=== PATIENT | female | born 1940 | race Caucasian/White ===

== ENCOUNTER 2016-12-03 17:29 | Emergency (ER) | payer OTHER ==
--- NOTE | 2016-12-03 17:43 | EDPHY ---
H & P Time Seen by Provider: 12/03/16 17:34 HPI/ROS: Chief complaint. Shortness of breath, chest heaviness HPI. 76-year-old female with COPD presents with chest tightness in her central chest for 1 day. No radiation. She short of breath initially this week with exertion now at rest. She has been using her albuterol inhaler some though not on a regular basis. 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 Again now somewhat short of breath at rest. URI symptoms 4 days ago. Nonproductive some cough. Rattle E breath last 3 nights when lying down. Fever to 100 degrees. ROS Constitutional. Fever Eyes. no problems with vision ENT. no sore throat, no nasal drainage Cardiovascular. Central chest tightness Respiratory. Shortness of breath some cough Abdominal. no abdominal pain, no nausea/vomiting, no diarrhea . no problems urinating MS. no calf pain/swelling, no neck/back pain, no joint pain Skin. no rash Lymph. no swollen glands Neuro. no headache, no dizziness, no difficulty walking or with speech Past Medical/Surgical History: Past medical history COPD GI hypertrophic cardiomyopathy, diabetes, hypertension , dyslipidemia, kidney stone, hyperparathyroidism, DVT/PE on Coumadin. 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 Initial O2 saturation 89% on room air Eyes: Pupils equal and round no pallor or injection. ENT, Mouth: Mucous membranes are moist. No stridor. Patient speaks in full sentences Respiratory: No retractions. Mild inspiratory expiratory rhonchi. Cardiovascular: Regular rate and rhythm. Gastrointestinal: Abdomen is soft and nontender, no masses, bowel sounds normal. Neurological: Awake and alert, sensory and motor exams grossly normal. Skin: Warm and dry, no rashes. Musculoskeletal: Neck is supple nontender. Extremities symmetrical, full range of motion. Psychiatric: Patient is oriented X 3, there is no agitation. Constitutional: Initial Vital Signs O2 Sat (%) 93 12/03/16 17:45 O2 Delivery Mode Nasal Cannula O2 (L/minute) 2 Allergies/Adverse Reactions: codeine [Codeine] Allergy (Severe, Verified 02/04/12 13:57) Other-Enter Comments Sulfa (Sulfonamide Antibiotics) Allergy (Severe, Verified 02/04/12 13:57) Unknown propoxyphene HCl [From Darvon] Allergy (Unknown, Verified 02/04/12 13:57) Seasonal Allergies Allergy (Severe, Uncoded 02/04/12 13:57) Congestion Home Medications: Medication Instructions Recorded Hydrochlorothiazide [HCTZ (*)] 12.5 mg PO DAILY 02/04/12 Multivitamins [Multivitamin (*)] 1 each PO DAILY 02/04/12 PARoxetine HCL [Paxil 10mg (*)] 10 mg PO DAILY 02/04/12 Valsartan [Diovan (*)] 160 mg PO BID 02/04/12 Warfarin Sodium [Coumadin 5MG (*)] 5 mg PO SUTUWETHFRSA@16 02/04/12 Cholecalciferol Vit D3 [Vitamin D3 2,000 units PO HS 12/10/15 2000 units] Metformin HCl [Metformin 1000 mg] 1,000 mg PO BIDMEAL 12/10/15 Metoprolol Succinate Xr [Toprol Xl 50 mg PO DAILY 12/10/15 50 mg (*)] Herbals/Supplements -Info Only 1 ea PO DAILY 09/05/16 Iron Polysacch/Iron Heme Polyp 28 mg PO DAILY 09/05/16 [Bifera] Warfarin Sodium [Coumadin 5MG (*)] 7.5 mg PO MO@16 09/05/16 Ipratropium/Albuterol [Duoneb (*)] 3 ml IH QID #60 deyvial 09/08/16 Advair 250/50 (*) 12/03/16 Azithromycin [Zithromax] 250 mg PO DAILY #6 tab 12/03/16 Calcium Citrate 12/03/16 Mucinex 12/03/16 predniSONE 40 mg PO DAILY #10 tab 12/03/16 Medical Decision Making - Diagnostics EKG Interpretation: EKG interpreted by me shows normal sinus rhythm with normal interval and left axis deviation. QRS shows a right bundle branch block. No significant ST elevation or depression. The rate is 64. No change in the EKG from previous EKG 08/2016 Imaging: CT angiogram chest interpreted by me and then discussed with Dr. Rocha shows no evidence of pulmonary embolus Procedures: IV normal saline. DuoNeb updraft ED Course/Re-evaluation: Re-evaluation 7:55 p.m.--patient is stable and feeling much better. No chest discomfort. She is breathing well. She a has a pulse oximeter of between 90 and 93% on room air. She speaks in full sentences. The patient, her daughter, and I discussed treatment plan including criteria for return importance of follow-up and further evaluation. She expresses understanding and agreement Patient is given prednisone 60 mg by mouth Differential Diagnosis: Likely this is COPD exacerbation. I considered pneumonia and pneumothorax as well as pulmonary embolus. I also considered acute coronary syndrome - Data Points Laboratory Results: Laboratory Results 12/03/16 17:50 12/03/16 17:50 12/03/16 12/03/16 12/03/16 17:50 17:50 17:50 WBC RBC Hgb Hct MCV MCH MCHC RDW Plt Count MPV Neut % (Auto) Lymph % (Auto) [place] % (Auto) Eos % (Auto) Baso % (Auto) Nucleat RBC Rel Count Absolute Neuts (auto) Absolute Lymphs (auto) Absolute Monos (auto) Absolute Eos (auto) Absolute Basos (auto) Absolute Nucleated RBC Immature Gran % Immature Gran # PT 21.7 SEC H SEC (12.0-15.0) INR 1.88 H (0.83-1.16) D-Dimer 0.66 ug/mLFEU H ug/mLFEU (0.00-0.50) Sodium 139 mEq/L mEq/L (134-144) Potassium 4.3 mEq/L mEq/L (3.5-5.2) Chloride 102 mEq/L mEq/L (97-110) Carbon Dioxide 25 mEq/l mEq/l (22-31) Anion Gap 12 mEq/L mEq/L (8-16) BUN 19 mg/dL mg/dL (7-23) Creatinine 0.7 mg/dL mg/dL (0.6-1.0) Estimated GFR > 60 Glucose 98 mg/dL mg/dL (70-100) Calcium 9.2 mg/dL mg/dL (8.5-10.4) Troponin I < 0.012 ng/mL ng/mL (0-0.034) NT-Pro-B Natriuret Pep 394 pg/mL H pg/mL (0-125) 12/03/16 17:50 WBC 5.40 10^3/uL 10^3/uL (3.80-9.50) RBC 5.11 10^6/uL 10^6/uL (4.18-5.33) Hgb 15.2 g/dL g/dL (12.6-16.3) Hct 44.6 % % (38.0-47.0) MCV 87.3 fL fL (81.5-99.8) MCH 29.7 pg pg (27.9-34.1) MCHC 34.1 g/dL g/dL (32.4-36.7) RDW 13.3 % % (11.5-15.2) Plt Count 208 10^3/uL 10^3/uL (150-400) MPV 10.0 fL fL (8.7-11.7) Neut % (Auto) 51.2 % % (39.3-74.2) Lymph % (Auto) 33.9 % % (15.0-45.0) [place] % (Auto) 11.3 % % (4.5-13.0) Eos % (Auto) 3.0 % % (0.6-7.6) Baso % (Auto) 0.4 % % (0.3-1.7) Nucleat RBC Rel Count 0.0 % % (0.0-0.2) Absolute Neuts (auto) 2.77 10^3/uL 10^3/uL (1.70-6.50) Absolute Lymphs (auto) 1.83 10^3/uL 10^3/uL (1.00-3.00) Absolute Monos (auto) 0.61 10^3/uL 10^3/uL (0.30-0.80) Absolute Eos (auto) 0.16 10^3/uL 10^3/uL (0.03-0.40) Absolute Basos (auto) 0.02 10^3/uL 10^3/uL (0.02-0.10) Absolute Nucleated RBC 0.00 10^3/uL 10^3/uL (0-0.01) Immature Gran % 0.2 % % (0.0-1.1) Immature Gran # 0.01 10^3/uL 10^3/uL (0.00-0.10) PT INR D-Dimer Sodium Potassium Chloride Carbon Dioxide Anion Gap BUN Creatinine Estimated GFR Glucose Calcium Troponin I NT-Pro-B Natriuret Pep Medications Given: Discontinued Medications Albuterol/Ipratropium (Duoneb) 3 ml IH EDNOW ONE Stop: 12/03/16 18:04 Last Admin: 12/03/16 18:28 Dose: 3 ml Departure - Departure Disposition: Home, Routine, Self-Care Clinical Impression: Chronic obstructive pulmonary disease with acute exacerbation Condition: Good Instructions: COPD (Chronic Obstructive Pulmonary Disease) (ED) Additional Instructions: Prednisone daily for the next 5 days. Zithromax is antibiotic to fill the prescription tomorrow especially if you're not improving. Continue to use her nebulizer at home at least once daily and may be 2-3 times each day for the next 2 days over the weekend Take an extra half warfarin pill tonight as your INR is low tonight. The antibiotic (Zithromax) can also affect your INR so it is important to have it checked next week Return over the weekend for worsening symptoms. Recheck Tuesday or Tuesday in the office to have your INR checked and to follow up on your breathing. Referrals: SHIREEN SHETH [Primary Care Provider] - 2-3 days, call for appt.
--- NOTE | 2016-12-03 17:43 | CPEKG ---
Heart Rate: 64 RR Interval: 938 P-R Interval: 176 QRSD Interval: 148 QT Interval: 428 QTC Interval: 442 P Veteran: 7 QRS Veteran: 62 T Wave Veteran: -13 EKG Severity - ABNORMAL ECG - EKG Impression: SINUS RHYTHM EKG Impression: RIGHT BUNDLE BRANCH BLOCK Electronically Signed By: Pablo Caruso 03-Dec-2016 23:27:20
[2016-12-03 17:48] VITALS: TEMP 98.2
[2016-12-03 18:03] LABS: % IMMATURE GRANULYOCYTES 0.2 % (0.0-1.1); ABSOLUTE IMMATURE GRANULOCYTES 0.01 10^3/uL (0.00-0.10); ADD DIFF? NO; ADD MORPH? NO; ADD SCAN? YES; FRAGMENT RBC FLAG 0 (0-99); HEMATOCRIT 44.6 % (38.0-47.0); HEMOGLOBIN 15.2 g/dL (12.6-16.3); LEFT SHIFT FLG 0 (0-99); LIPEMIA HEMOLYSIS FLAG 90 (0-99); MEAN CELL HEMOGLOBIN 29.7 pg (27.9-34.1); MEAN CELL HEMOGLOBIN CONCENTR. 34.1 g/dL (32.4-36.7); MEAN CELL VOLUME 87.3 fL (81.5-99.8); PLATELET CLUMPS FLAG 0 (0-99); PLATELET COUNT 208 10^3/uL (150-400); RED BLOOD CELL COUNT 5.11 10^6/uL (4.18-5.33); RED CELL DISTRIBUTION WIDTH 13.3 % (11.5-15.2)
[2016-12-03] MEDS ORDERED: IPRATROPIUM/ALBUTEROL 3 ML DEYVIAL IH ONE (18:03)
[2016-12-03 18:07] LABS: ATYPICAL LYMPHOCYTE FLAG 140 (0-99)
[2016-12-03 18:12] LABS: ANION GAP 12 mEq/L (8-16); CALCIUM 9.2 mg/dL (8.5-10.4); CARBON DIOXIDE 25 mEq/l (22-31); CHLORIDE 102 mEq/L (97-110); CREATININE 0.7 mg/dL (0.6-1.0); GLOMERULAR FILTRATION RATE > 60; GLUCOSE 98 mg/dL (70-100); POTASSIUM 4.3 mEq/L (3.5-5.2); SODIUM 139 mEq/L (134-144)
[2016-12-03 18:22] LABS: TROPONIN I < 0.012 ng/mL (0-0.034)
[2016-12-03 18:31] LABS: INR 1.88 (0.83-1.16); PROTIME(PATIENT) 21.7 SEC (12.0-15.0)
[2016-12-03 18:38] LABS: SCAN NEGATIVE
[2016-12-03] MEDS ORDERED: IOPAMIDOL (ISOVUE-370) 150 ML BTL IV ONE (19:07)
[2016-12-03 19:38] VITALS: BP 126/79; RESP 16
[2016-12-03] MEDS ORDERED: predniSONE 20 MG TAB PO ONE (20:06)
[2016-12-03 20:24] VITALS: PULSE 70; O2SAT 91
== END 2016-12-03 20:23 | disposition home or self-care (01) ==
DX: J44.1 Chronic obstructive pulmonary disease with (acute) exacerbation (principal); E11.9 Type 2 diabetes mellitus without complications; I10 Essential (primary) hypertension; Z87.891 Personal history of nicotine dependence; Z79.01 Long term (current) use of anticoagulants
CPT/HCPCS: 71020; 71275; 93005; 99285; Q9967

== ENCOUNTER → 2017-08-01 | Outpatient (CLI) | payer OTHER | LOC: FIMAGING 14:55 | PROVIDERS: ATTEND Family Medicine | DX: Z13.820 Encounter for screening for osteoporosis (principal); E11.69 Type 2 diabetes mellitus with other specified complication; I10 Essential (primary) hypertension ==

== ENCOUNTER 2018-07-16 04:44 | Emergency (ER) | payer OTHER ==
[2018-07-16] MEDS ORDERED: OXYMETAZOLINE 30 ML NASAL SPRAY ONE (05:06)
[2018-07-16] MEDS ORDERED: TRANEXAMIC ACID 1,000 MG/10 ML VIAL TP ONE ×2 (05:15→05:55)
[2018-07-16] MEDS ORDERED: TRANEXAMIC ACID 1,000 MG/10 ML VIAL ONE (05:47)
--- NOTE | 2018-07-16 06:14 | EDPHY ---
H & P Stated Complaint: nosebleed Time Seen by Provider: 07/16/18 05:04 HPI/ROS: HPI The patient presents with epistaxis which has been present for approximately the last 1 hr that started from her left naris and then both. She has been unable to control the bleeding at home. She is on Coumadin and had her INR checked recently and it was 3. She has prior history of epistaxis requiring ENT evaluation and treatment. . REVIEW OF SYSTEMS 10 systems were reviewed and negative with the exception of the elements mentioned in the history of present illness. PMHx: History of PE, asthma, hypertension, diabetes, EDUAR using CPAP machine at night Soc Hx: Lives independently PHYSICAL General Appearance: Alert, no distress Eyes: Pupils equal and round no pallor or injection ENT, Mouth: Active bleeding from both nares, unable to visualize source of bleeding, Mucous membranes moist Respiratory: There are no retractions, lungs are clear to auscultation Cardiovascular: Regular rate and rhythm Gastrointestinal: Abdomen is soft and non-tender, no masses, bowel sounds normal Neurological: A&O, moves all extremities Skin: Warm and dry, no rashes Musculoskeletal: Neck is supple non tender Extremities: symmetrical, full range of motion Psychiatric: Patient is oriented X 3, there is no agitation Source: Patient Exam Limitations: No limitations - Personal History Current Tetanus Diphtheria and Acellular Pertussis (TDAP): Yes - Medical/Surgical History Hx Asthma: Yes Hx Chronic Respiratory Disease: No Hx Diabetes: Yes Hx Cardiac Disease: Yes Hx Renal Disease: No Hx Cirrhosis: No Hx Alcoholism: No Hx HIV/AIDS: No Hx Splenectomy or Spleen Trauma: No Other PMH: PE x2/ASTHMA/PAT,EDUAR, cpap,. enlarged heart, diabetic, hypertension , atrail tachycardia, kidney stones w/ lithotripsy, PE, chronic diarrhea, " heart attack possibly". - Social History Smoking Status: Former smoker Constitutional: Initial Vital Signs Temperature (C) 37 C 07/16/18 04:51 Heart Rate 77 07/16/18 04:51 Respiratory Rate 20 07/16/18 04:51 O2 Sat (%) 96 07/16/18 04:51 O2 Delivery Mode Room Air Allergies/Adverse Reactions: codeine [Codeine] Allergy (Severe, Verified 07/16/18 04:51) Other-Enter Comments Sulfa (Sulfonamide Antibiotics) Allergy (Severe, Verified 07/16/18 04:51) Unknown propoxyphene HCl [From Darvon] Allergy (Unknown, Verified 07/16/18 04:51) Seasonal Allergies Allergy (Severe, Uncoded 07/16/18 04:51) Congestion Home Medications: Medication Instructions Recorded Hydrochlorothiazide [HCTZ (*)] 12.5 mg PO DAILY 02/04/12 Multivitamins [Multivitamin (*)] 1 each PO DAILY 02/04/12 PARoxetine HCL [Paxil 10mg (*)] 10 mg PO DAILY 02/04/12 Valsartan [Diovan (*)] 160 mg PO BID 02/04/12 Warfarin Sodium [Coumadin 5MG (*)] 5 mg PO SUTUWETHFRSA@16 02/04/12 Cholecalciferol Vit D3 [Vitamin D3 2,000 units PO HS 12/10/15 2000 units] Metformin HCl [Metformin 1000 mg] 1,000 mg PO BIDMEAL 12/10/15 Metoprolol Succinate Xr [Toprol Xl 50 mg PO DAILY 12/10/15 50 mg (*)] Herbals/Supplements -Info Only 1 ea PO DAILY 09/05/16 Iron Polysacch/Iron Heme Polyp 28 mg PO DAILY 09/05/16 [Bifera] Warfarin Sodium [Coumadin 5MG (*)] 7.5 mg PO MO@16 09/05/16 Ipratropium/Albuterol [Duoneb (*)] 3 ml IH QID #60 deyvial 09/08/16 Advair 250/50 (*) 12/03/16 Azithromycin [Zithromax] 250 mg PO DAILY #6 tab 12/03/16 Calcium Citrate 12/03/16 Mucinex 12/03/16 predniSONE 40 mg PO DAILY #10 tab 12/03/16 Amoxicillin/Clavulanate Pot 875 mg PO BID #14 tab 07/16/18 [Augmentin 875 MG TAB (*)] Medical Decision Making Procedures: NOSE BLEED Procedure: Epistaxis control. Indication: nosebleed not controlled by direct pressure. Risks, benefits, alternatives discussed with patient and consent obtained. The left naris was anesthetized with [place] nasal solution. The anterior epistaxis was identified. The patient was treated with packing with rhino rocket. Following the procedure the patient was re-examined and the bleeding was well controlled. The patient tolerated the procedure well. The procedure was performed by myself. Differential Diagnosis: 77-year-old female with multiple medical problems including history of pulmonary embolism on Coumadin presents with epistaxis, initially from her left naris beginning at about 1:45 a.m. While she was using her CPAP machine and sleeping. Here we attempted Afrin and clamped without any improvement in her bleeding. I then attempted to pass a rhino rocket, however the patient did not tolerate this. We then used suction to remove all clots from her nose. I then placed tranexamic acid on a cotton ball and placed in her nose for 15 min. This improved the bleeding somewhat, however bleeding continued. I subsequently placed a rhino rocket which allowed for hemostasis. The patient will be discharged with follow-up with ROSENDA Lozano. She is concerned about taking antibiotics because of history of C diff. I have explained that she can use antibiotic ointment. She will be discharged from the emergency department. - Data Points Medications Given: Discontinued Medications Tranexamic Acid (Cyklokapron) 500 mg TP EDNOW ONE Stop: 07/16/18 05:16 Last Admin: 07/16/18 05:24 Dose: Not Given Tranexamic Acid (Cyklokapron) 500 mg TP EDNOW ONE Stop: 07/16/18 05:56 Last Admin: 07/16/18 05:56 Dose: Not Given Departure - Departure Disposition: Home, Routine, Self-Care Clinical Impression: Anterior epistaxis Condition: Good Instructions: Nosebleed (ED) Additional Instructions: The packing in her nose should be removed in 48 hr. You can come to the emergency department for this or follow up with your ENT Please take the antibiotic as prescribed. Referrals: Santino Liao MD [Medical Doctor] - As per Instructions SHIREEN SHETH [Primary Care Provider] - As per Instructions Prescriptions: Amoxicillin/Clavulanate Pot [Augmentin 875 MG TAB (*)] 875 mg PO BID #14 tab
== END 2018-07-16 06:30 | disposition home or self-care (01) ==
PROC: 2Y41X5Z Packing of Nasal Region using Packing Material (ICD-10-PCS; principal; 2018-07-16)
DX: R04.0 Epistaxis (principal); Z79.01 Long term (current) use of anticoagulants; Z87.891 Personal history of nicotine dependence